=== PATIENT | female | born 1955 | race Caucasian/White ===

== ENCOUNTER → 2016-11-25 | Outpatient (CLI) | payer OTHER ==
[~2016-11-25] MED LIST: ASPI1TAB PO; COZA50TA PO; LOSA25TA8 PO; LOSA50TA20 PO; NAPR500T PO; OMEP20CA3 PO; PLAV75TA PO; TIZA4CAP3 PO; ZANA4TAB PO
--- NOTE | 2016-11-27 06:27 | SLEEPCENT ---
DATE OF PROCEDURE: 11/25/2016 ORDERED BY: Hanna Melissa Nocturnal polysomnography was performed for evaluation of sleep apnea syndrome symptoms in this patient with a history of excessive somnolence, nonrestorative sleep and comorbidity of hypertension. 7 hours and 17 minutes of data were reviewed. There were 391 minutes of sleep identified. Sleep latency was normal at 28 minutes. Rapid eye movement (REM) latency was delayed at 313 minutes. Sleep architecture showed poor progression. There was 1 REM period late in the study. Overall sleep efficiency was 90.6%. The patient's electrocardiogram (EKG) showed a sinus rhythm with an average heart rate of 60 beats per minute. Occasional unifocal ventricular ectopic beats were noted. Electroencephalogram (EEG) showed normal waveforms for awake and sleep. There were 27 respiratory events identified of 10 seconds in duration or greater for an apnea-hypopnea index of 4.1. The events were primarily obstructive, not exclusive to sleep stage nor body posture. Arousals from respiratory events occurred 6.4 times per hour when arousals from snoring were included. Some limb activity was appreciated. Arousals from limb events were few. Oxygen desaturations were seen on occasion into the upper 80s. IMPRESSION: Borderline nocturnal polysomnography with snoring and some respiratory disruption. RECOMMENDATION: The frequency of respiratory events did not meet criteria to establish obstructive sleep apnea syndrome. Nonetheless, the patient's sleep does appear to be impaired by the occurrence of respiratory disruption. Interventions to optimize upper airway tone may be prudent. Should symptoms persist, retesting has been shown more sensitive to identifying mild apneic disease.
== END | disposition home or self-care (01) ==
LOC: M SLEEP 19:45
PROVIDERS: ATTEND Nurse Practitioner Adult Health
DX: R06.83 Snoring (principal)

== ENCOUNTER → 2017-04-20 | Outpatient (REF) | payer OTHER ==
[~2017-04-20] MED LIST changes: -PLAV75TA PO; +PLAV75TA38 PO
[2017-04-20 19:59] LABS: MEAN CORPUSCULAR HEMOGLOBIN 31.8 pg (27.0-33.0); MEAN CORPUSCULAR HGB CONC 33.4 g/dl (32.0-36.5); MEAN CORPUSCULAR VOLUME 95.1 fl (80.0-96.0); RED CELL DISTRIBUTION WIDTH 13.1 % (11.5-14.5); WHITE BLOOD COUNT 7.3 K/mm3 (4.0-10.0)
[2017-04-20 20:10] LABS: ALBUMIN/GLOBULIN RATIO 1.14 (1.00-1.93); ALKALINE PHOSPHATASE 140 U/L (45-117); ALT/SGPT 26 U/L (12-78); ANION GAP 7 MEQ/L (8-16); AST/SGOT 13 U/L (15-37); BILIRUBIN,TOTAL 1.1 MG/DL (0.2-1.0); BLOOD UREA NITROGEN 24 MG/DL (7-18); CALCIUM LEVEL 9.1 MG/DL (8.5-10.1); CARBON DIOXIDE LEVEL 30 MEQ/L (21-32); CHLORIDE LEVEL 103 MEQ/L (98-107); CHOLESTEROL LEVEL 146 MG/DL (<200); CREATININE FOR GFR 0.57 MG/DL (0.55-1.02); FREE T4 1.17 NG/DL (0.76-1.46); GLOMERULAR FILTRATION RATE > 60.0 (>51); GLUCOSE, FASTING 73 MG/DL (70-105); POTASSIUM SERUM 4.6 MEQ/L (3.5-5.1); SODIUM LEVEL 140 MEQ/L (136-145); TOTAL PROTEIN 7.5 GM/DL (6.4-8.2); TRIGLYCERIDES LEVEL 109 MG/DL (<150)
== END ==
LOC: M SFHCADAM 14:24
PROVIDERS: ATTEND Family Medicine
DX: F32.9 Major depressive disorder, single episode, unspecified (principal); I10 Essential (primary) hypertension; E78.2 Mixed hyperlipidemia; E55.9 Vitamin D deficiency, unspecified

== ENCOUNTER → 2017-11-02 | Outpatient (REF) | payer OTHER ==
[~2017-11-02] MED LIST changes: +PLAV1TAB2 PO; -PLAV75TA38 PO
== END ==
LOC: M SFHCWAGY 14:57
PROVIDERS: ATTEND Nurse Practitioner Family
DX: Z12.4 Encounter for screening for malignant neoplasm of cervix (principal)

== ENCOUNTER → 2017-11-02 | Outpatient (CLI) | payer OTHER ==
--- NOTE | 2017-11-02 16:08 | REPMRS ---
Patient History The patient states she had a clinical breast exam in 10/2017. Patient is postmenopausal and is nulliparous. Family history of breast cancer in maternal aunt and colorectal cancer in maternal uncle. Digital Woman Screen Mammo: November 02, 2017 - Exam #: [id number] Bilateral CC and MLO view(s) were taken. Technologist: Jaycee Youngblood, Technologist Prior study comparison: October 17, 2015, digital woman screen mammo performed at [facility] to [facility]. July 02, 2014, digital woman screen mammo performed at [facility] to [facility]. FINDINGS: There are scattered fibroglandular densities. There has been no change in the appearance of the mammogram from the prior studies. There is a mild amount of residual fibroglandular tissue which is fairly symmetric. There is no interval development of dominant mass, architectural distortion, or clustered microcalcification suggestive of malignancy. ASSESSMENT: BI-RADS/ACR category 1 mammogram. Negative. Recommendation Routine screening mammogram in 1 year (for women over age 40). This mammogram was interpreted with the aid of an FDA-approved computer-aided dectection system. Electronically Signed By: Deuce Valentino MD 11/02/17 [id number]
== END ==
LOC: M WHC 14:06
PROVIDERS: ATTEND Nurse Practitioner Family
DX: Z12.31 Encounter for screening mammogram for malignant neoplasm of breast (principal); Z78.0 Asymptomatic menopausal state

== ENCOUNTER → 2018-01-25 | Outpatient (CLI) | payer OTHER | LOC: M WUC 12:17 | DX: S60.212A Contusion of left wrist, initial encounter (principal); X58.XXXA Exposure to other specified factors, initial encounter; Y92.89 Other specified places as the place of occurrence of the external cause | CPT/HCPCS: 73110 ==

== ENCOUNTER → 2018-02-11 | Outpatient (CLI) | payer OTHER ==
[2018-02-11 09:21] LABS: BASO # 0.1 10^3/uL (0.0-0.2); EOS # 0.2 10^3/uL (0.0-0.50); EOS % 2.7 % (0.0-3.0); HEMATOCRIT 39.5 % (36.0-47.0); HEMOGLOBIN 13.2 g/dl (12.0-15.5); IMMATURE GRANULOCYTE % 0.1 % (0-3.0); LYMPH # 2.1 10^3/uL (1.5-4.5); LYMPH % 25.1 % (24.0-44.0); MEAN CORPUSCULAR HEMOGLOBIN 31.3 pg (27.0-33.0); MEAN CORPUSCULAR HGB CONC 33.4 g/dl (32.0-36.5); MEAN CORPUSCULAR VOLUME 93.6 fl (80.0-96.0); MONO # 0.7 10^3/uL (0.0-0.8); MONO % 8.4 % (0.0-5.0); NEUTROPHILS # 5.3 10^3/uL (1.8-7.7); NEUTROPHILS % 62.7 % (36.0-66.0); PLATELET COUNT, AUTOMATED 346 10^3/uL (150-450); RED BLOOD COUNT 4.22 10^6/uL (4.00-5.40); RED CELL DISTRIBUTION WIDTH 13.2 % (11.5-14.5); WHITE BLOOD COUNT 8.4 10^3/uL (4.0-10.0)
[2018-02-11 09:39] LABS: ALBUMIN 3.8 GM/DL (3.2-5.2); ALBUMIN/GLOBULIN RATIO 1.19 (1.00-1.93); ALKALINE PHOSPHATASE 139 U/L (45-117); ALT/SGPT 22 U/L (12-78); ANION GAP 5 MEQ/L (8-16); AST/SGOT 13 U/L (7-37); BILIRUBIN,TOTAL 0.8 MG/DL (0.2-1.0); BLOOD UREA NITROGEN 20 MG/DL (7-18); CALCIUM LEVEL 8.6 MG/DL (8.8-10.2); CARBON DIOXIDE LEVEL 30 MEQ/L (21-32); CHLORIDE LEVEL 107 MEQ/L (98-107); CHOLESTEROL LEVEL 159 MG/DL (<200); CHOLESTEROL RISK RATIO 2.564 (<5); CREATININE FOR GFR 0.56 MG/DL (0.55-1.30); GLOMERULAR FILTRATION RATE > 60.0 (>45); GLUCOSE, FASTING 98 MG/DL (70-100); HDL CHOLESTEROL 62 MG/DL (>40); LDL CHOLESTEROL 67.6 MG/DL (<100); NON-HDL-C 97 MG/DL; POTASSIUM SERUM 4.4 MEQ/L (3.5-5.1); SODIUM LEVEL 142 MEQ/L (136-145); TRIGLYCERIDES LEVEL 147 MG/DL (<150)
== END ==
LOC: M LAB 08:50
DX: Z00.00 Encounter for general adult medical examination without abnormal findings (principal)
CPT/HCPCS: 80053

== ENCOUNTER → 2018-02-11 | Outpatient (CLI) | payer OTHER | LOC: M RAD 12:03 | DX: M76.71 Peroneal tendinitis, right leg (principal) | CPT/HCPCS: 73721 ==

== ENCOUNTER → 2018-05-24 | Outpatient (CLI) | payer OTHER ==
[2018-05-24 11:13] LABS: CHOLESTEROL LEVEL 186 MG/DL (<200); CHOLESTEROL RISK RATIO 3.152 (<5); HDL CHOLESTEROL 59 MG/DL (>40); LDL CHOLESTEROL 104.6 MG/DL (<100); NON-HDL-C 127 MG/DL; TRIGLYCERIDES LEVEL 112 MG/DL (<150)
== END ==
LOC: M LAB 10:12
DX: E78.2 Mixed hyperlipidemia (principal)
CPT/HCPCS: 80061

== ENCOUNTER → 2018-12-20 | Outpatient (CLI) | payer OTHER ==
[~2018-12-20] MED LIST changes: +LOSA25TA14 PO; -LOSA25TA8 PO; -LOSA50TA20 PO; +LOSA50TA88 PO; +NAPR-50 PO; -NAPR500T PO; +TIZA4CAP PO; -TIZA4CAP3 PO
[2018-12-20 11:36] LABS: BASO # 0.1 10^3/uL (0.0-0.2); BASO % 1.4 % (0.0-1.0); EOS # 0.2 10^3/uL (0.0-0.50); EOS % 3.4 % (0.0-3.0); HEMATOCRIT 39.8 % (36.0-47.0); HEMOGLOBIN 13.4 g/dl (12.0-15.5); LYMPH # 2.2 10^3/uL (1.5-4.5); MEAN CORPUSCULAR HEMOGLOBIN 31.3 pg (27.0-33.0); MEAN CORPUSCULAR HGB CONC 33.7 g/dl (32.0-36.5); MONO # 0.6 10^3/uL (0.0-0.8); MONO % 8.9 % (0.0-5.0); NEUTROPHILS # 3.8 10^3/uL (1.8-7.7); PLATELET COUNT, AUTOMATED 310 10^3/uL (150-450); RED BLOOD COUNT 4.28 10^6/uL (4.00-5.40)
[2018-12-20 12:09] LABS: ALBUMIN 3.7 GM/DL (3.2-5.2); ALT/SGPT 23 U/L (12-78); BILIRUBIN,TOTAL 0.6 MG/DL (0.2-1.0); BLOOD UREA NITROGEN 17 MG/DL (7-18); CALCIUM LEVEL 8.3 MG/DL (8.8-10.2); CARBON DIOXIDE LEVEL 31 MEQ/L (21-32); CHLORIDE LEVEL 107 MEQ/L (98-107); CHOLESTEROL LEVEL 176 MG/DL (<200); CHOLESTEROL RISK RATIO 3.142 (<5); CREATININE FOR GFR 0.56 MG/DL (0.55-1.30); GLOMERULAR FILTRATION RATE > 60.0 (>45); GLUCOSE, FASTING 89 MG/DL (70-100); HDL CHOLESTEROL 56 MG/DL (>40); LDL CHOLESTEROL 105 MG/DL (<100); NON-HDL-C 120 MG/DL; POTASSIUM SERUM 4.7 MEQ/L (3.5-5.1); SODIUM LEVEL 143 MEQ/L (136-145); TOTAL 25(OH) VITAMIN D 66.1 NG/ML (30.0-100.0); TOTAL PROTEIN 6.7 GM/DL (6.4-8.2); TRIGLYCERIDES LEVEL 74 MG/DL (<150)
== END ==
LOC: M LAB 10:28
PROVIDERS: ATTEND Family Medicine
DX: E78.2 Mixed hyperlipidemia (principal)

== ENCOUNTER → 2019-01-20 | Outpatient (CLI) | payer OTHER ==
--- NOTE | 2019-01-20 15:27 | REPMRS ---
Patient History The patient states she had a clinical breast exam in 01/31 Family history of breast cancer in maternal aunt, colorectal cancer in maternal uncle. 3D TOMOSYNTHESIS WAS PERFORMED. Digital Woman Screen Mammo: January 20, 2019 - Exam #: [id number] Bilateral CC and MLO view(s) were taken. Technologist: Maya Flores, Technologist Prior study comparison: November 02, 2017, digital woman screen mammo performed at [facility]. October 17, 2015, digital woman screen mammo performed at [facility] to [facility]. FINDINGS: There are scattered fibroglandular densities. There has been no change in the appearance of the mammogram from the prior studies. There is a mild amount of residual fibroglandular tissue which is fairly symmetric. There is no interval development of dominant mass, architectural distortion, or clustered microcalcification suggestive of malignancy. Assessment: BI-RADS/ACR category 1 mammogram. Negative Mammogram. Recommendation Routine screening mammogram in 1 year (for women over age 40). This mammogram was interpreted with the aid of an FDA-approved computer-aided dectection system. Electronically Signed By: Deuce Valentino MD 01/20/19 [id number]
== END ==
LOC: M WHC 13:44
PROVIDERS: ATTEND Nurse Practitioner Family
DX: Z12.31 Encounter for screening mammogram for malignant neoplasm of breast (principal); Z80.3 Family history of malignant neoplasm of breast

== ENCOUNTER → 2019-02-22 | Outpatient (CLI) | payer OTHER ==
[~2019-02-22] MED LIST changes: -ASPI1TAB PO; +ASPI81TA26 PO; -NAPR-50 PO; +NAPR-837 PO
== END ==
LOC: M LAB 12:45
PROVIDERS: ATTEND Family Medicine
DX: Z11.59 Encounter for screening for other viral diseases (principal); I10 Essential (primary) hypertension; N39.3 Stress incontinence (female) (male)

== ENCOUNTER → 2019-03-01 | Outpatient (CLI) | payer OTHER ==
--- NOTE | 2019-03-01 12:57 | REP ---
Low-dose lung screening CT of the chest: The study is performed without IV contrast. The images are presented at lung windowing only. There are no nodules or masses. There are no acute infiltrates or pleural effusions. Impression: Category 1 low-dose lung screening CT. The incidence of malignancy is less than 1%. Depending on risk factors consider annual follow-up low-dose lung screening CT. Electronically Signed by Deuce Galvin MD 03/01/2019 12:48 P
== END ==
LOC: M RAD 09:30
PROVIDERS: ATTEND Family Medicine
DX: Z12.2 Encounter for screening for malignant neoplasm of respiratory organs (principal); F17.210 Nicotine dependence, cigarettes, uncomplicated

== ENCOUNTER 2019-05-11 12:53 | Outpatient (RCR) | payer OTHER | END 2019-05-14 | LOC: M PT 12:53 | PROVIDERS: ATTEND Obstetrics & Gynecology | DX: N39.46 Mixed incontinence (principal); N39.42 Incontinence without sensory awareness ==

== ENCOUNTER 2019-05-26 10:20 | Outpatient (RCR) | payer OTHER ==
[~2019-05-26 10:20] MED LIST changes: -OMEP20CA3 PO; +OMEP20CA4 PO
== END 2019-06-14 ==
LOC: M PT 10:20
PROVIDERS: ATTEND Obstetrics & Gynecology
DX: Z51.89 Encounter for other specified aftercare (principal); N39.46 Mixed incontinence; N39.42 Incontinence without sensory awareness

== ENCOUNTER 2019-10-30 20:44 | Emergency (ER) | payer OTHER ==
[~2019-10-30] VITALS: Ht 160 cm; Wt 91.3 kg
[~2019-10-30 20:44] MED LIST changes: +OMEP-172 PO; -OMEP20CA4 PO
--- NOTE | 2019-10-30 21:21 | REPVR ---
PROCEDURE INFORMATION: Exam: CT Head Without Contrast Exam date and time: 10/30/2019 9:15 PM Age: 64 years old Clinical history: Weakness, facial; Additional info: CVA - nursing interventions must not delay CT TECHNIQUE: Imaging protocol: Computed tomography of the head without contrast. Radiation optimization: All CT scans at this facility use at least one of these dose optimization techniques: automated exposure control; mA and/or kV adjustment per patient size (includes targeted exams where dose is matched to clinical indication); or iterative reconstruction. Other technique: STROKE PROTOCOL was implemented. COMPARISON: CT Head without contrast 03/08/2014 4:52 PM FINDINGS: Brain: There is volume loss. There is white matter lucency consistent with chronic microvascular disease. There is an old right basal ganglia lacunar infarct. There is an old right thalamic lacunar infarct. There is no evidence of acute infarct. There is no hemorrhage or extra-axial collection. Ventricles: Normal. No ventriculomegaly. Bones/joints: Unremarkable. No acute fracture. Sinuses: Visualized sinuses are unremarkable. No fluid levels. Mastoid air cells: Visualized mastoid air cells are well aerated. Soft tissues: Unremarkable. IMPRESSION: 1. There is chronic microvascular disease with old right basal ganglia and thalamic lacunar infarcts. 2. No acute lesion or injury and no change from prior scan. ASSESSMENT: ASPECTS ([facility] Stroke Program Early CT Score) is 10 Electronically signed by: Liam Gary On 10/30/2019 21:21:24 PM
[2019-10-30 21:44] LABS: BASO # 0.1 10^3/uL (0.0-0.2); EOS # 0.3 10^3/uL (0.0-0.5); EOS % 3.6 % (0.0-3.0); HEMATOCRIT 41.1 % (36.0-47.0); HEMOGLOBIN 13.8 g/dl (12.0-15.5); LYMPH # 3.2 10^3/uL (1.5-5.0); LYMPH % 33.5 % (24.0-44.0); MEAN CORPUSCULAR HEMOGLOBIN 30.9 pg (27.0-33.0); MEAN CORPUSCULAR HGB CONC 33.6 g/dl (32.0-36.5); MEAN CORPUSCULAR VOLUME 91.9 fl (80.0-96.0); MONO % 10.1 % (0.0-5.0); NEUTROPHILS # 4.9 10^3/uL (1.5-8.5); NEUTROPHILS % 51.6 % (36.0-66.0); PLATELET COUNT, AUTOMATED 325 10^3/uL (150-450); RED BLOOD COUNT 4.47 10^6/uL (4.00-5.40); WHITE BLOOD COUNT 9.4 10^3/uL (4.0-10.0)
[2019-10-30] MEDS ORDERED: NS 1,000 ML IV ONE (21:45)
[2019-10-30] MEDS ORDERED: METOCLOPRAMIDE INJ 10MG/2ML VIAL (J2765) IV ONE (21:45)
[2019-10-30 22:02] LABS: INR 0.97; PROTHROMBIN TIME 12.6 SECONDS (11.8-14.0)
[2019-10-30 22:03] LABS: PARTIAL THROMBOPLASTIN TIME 28.3 SECONDS (25.0-38.4)
[2019-10-30 22:12] LABS: C REACTIVE PROTEIN QUANTITATIV < 0.30 MG/DL (0.00-0.30); CK-MB VALUE MASS 2.2 NG/ML (<3.6); CPK CREATINE PHOSPHOKINASE 108 U/L (26-192); MB/CK RELATIVE INDEX 2.04 (< OR =4); TROPONIN I < 0.02 NG/ML (< 0.10)
[2019-10-30 22:37] LABS: ERYTHROCYTE SEDIMENTATION RATE 12 mm/hr (0-30)
[2019-10-30] MEDS ORDERED: ISOVUE-370 76% 100ML VIAL (Q9967) As Ordered ONE (22:50)
--- NOTE | 2019-10-30 23:48 | REPVR ---
PROCEDURE INFORMATION: Exam: CT Angiography Head With Contrast Exam date and time: 10/30/2019 10:15 PM Age: 64 years old Clinical history: Pain; Headache; Additional Info: severe headache with neck pain; R/O aneurysm TECHNIQUE: Imaging protocol: Computed tomography angiography of the head with intravenous contrast. 3D rendering: MIP reconstructed images were created and reviewed. Radiation optimization: All CT scans at this facility use at least one of these dose optimization techniques: automated exposure control; mA and/or kV adjustment per patient size (includes targeted exams where dose is matched to clinical indication); or iterative reconstruction. Contrast material: ISO; Contrast volume: 100 ml; Contrast route: AC; COMPARISON: CT Head without contrast 10/30/2019 8:59 PM FINDINGS: Limitations: Examination is limited by motion artifact. Right internal carotid artery: Atherosclerotic calcification of the right carotid siphon. No occlusion or significant stenosis. No aneurysm. Right anterior cerebral artery: Unremarkable. No occlusion or significant stenosis. No aneurysm. Right middle cerebral artery: Unremarkable. No occlusion or significant stenosis. No aneurysm. Right posterior cerebral artery: Unremarkable. No occlusion or significant stenosis. No aneurysm. Right vertebral artery: Unremarkable. No occlusion or significant stenosis. No aneurysm. Left internal carotid artery: Atherosclerotic calcification of the left carotid siphon. No occlusion or significant stenosis. No aneurysm. Left anterior cerebral artery: Unremarkable. No occlusion or significant stenosis. No aneurysm. Left middle cerebral artery: Unremarkable. No occlusion or significant stenosis. No aneurysm. Left posterior cerebral artery: Unremarkable. No occlusion or significant stenosis. No aneurysm. Left vertebral artery: Unremarkable. No occlusion or significant stenosis. No aneurysm. Basilar artery: Unremarkable. No occlusion or significant stenosis. No aneurysm. IMPRESSION: 1. No large vessel arterial occlusion. 2. No aneurysm. Electronically signed by: Chelsey Hardin On 10/30/2019 23:48:16 PM
--- NOTE | 2019-10-30 23:53 | REPVR ---
PROCEDURE INFORMATION: Exam: CT Angiography Neck With Contrast Exam date and time: 10/30/2019 10:15 PM Age: 64 years old Clinical history: Pain; Headache; Additional Info: severe headache with neck pain; R/O aneurysm TECHNIQUE: Imaging protocol: Computed tomography angiography of the neck with intravenous contrast. 3D rendering: MIP reconstructed images were created and reviewed. Radiation optimization: All CT scans at this facility use at least one of these dose optimization techniques: automated exposure control; mA and/or kV adjustment per patient size (includes targeted exams where dose is matched to clinical indication); or iterative reconstruction. Contrast material: ISO; Contrast volume: 100 ml; Contrast route: AC; COMPARISON: US Duplex,carotid (complete) 03/09/2014 12:50 PM FINDINGS: Limitations: Examination is limited by motion artifact. VASCULATURE: Right common carotid artery: Unremarkable. No stenosis. No dissection or occlusion. Right internal carotid artery: Moderate atherosclerotic calcification at the origin of the right internal carotid artery. Tortuous proximal right ICA. Less than 50% focal stenosis of the proximal right ICA because of kinking. Moderate atherosclerotic calcification at the origin of the right internal carotid artery. Partially rim calcified lesion dorsal-medial to the right internal carotid artery measuring 1.4 x 1.4 x 2.7 cm, suspicious for thrombosed aneurysm. There is irregularity of the medial wall of the the right ICA at the partially calcified ICA lesion. Right external carotid artery: Unremarkable. No occlusion or stenosis of the origin. Right vertebral artery: Unremarkable. No stenosis. No dissection or occlusion. Left common carotid artery: Unremarkable. No stenosis. No dissection or occlusion. Left internal carotid artery: Moderate atherosclerotic calcification at the origin of the left internal carotid artery. Tortuous left ICA. Less than 50% focal stenosis in the left ICA because of kinking. No aneurysm. Left external carotid artery: Unremarkable. No occlusion or stenosis of the origin. Left vertebral artery: Unremarkable. No stenosis. No dissection or occlusion. NECK: Thyroid: Multiple small hypodense lesions in the thyroid measuring up to 6 mm. Moderate atherosclerotic calcification at the origin of the left internal carotid artery. Bones/joints: Mild degenerative spine. No acute fracture. Soft tissues: Normal. Lungs: Centrilobular emphysematous lung disease. Dental: Multiple dental fillings with associated beam hardening artifact. IMPRESSION: 1. Less than 50% focal stenosis of the proximal right ICA because of kinking. 2. Partially rim calcified lesion dorsal-medial to the right internal carotid artery, suspicious for thrombosed aneurysm. There is irregularity of the medial wall of the the right ICA at the partially calcified ICA lesion. 3. Less than 50% focal stenosis in the left ICA because of kinking. 4. Multiple small thyroid lesions. No follow-up is necessary. 5. Additional findings as described. COMMENT: 1. Reference per NASCET criteria for degree of stenosis: Mild: less than 50% stenosis. Moderate: 50-69% stenosis. Severe: 70-94% stenosis. Near occlusion: 95-99% stenosis. 2. In patients aged 35 years and older with an incidental thyroid nodule equal to or greater than 1.[address], MRI or extrathyroidal US, further evaluation with dedicated thyroid US is recommended for patients with normal life expectancy and without comorbidities. For smaller nodules without suspicious features, no further evaluation or follow up is recommended. Electronically signed by: Chelsey Hardin On 10/30/2019 23:52:57 PM
[2019-10-31 00:15] VITALS: BP 157/69
--- NOTE | 2019-10-31 08:46 | REP ---
Portable chest x-ray: Single view. History: CVA. Comparison chest x-ray January 13, 2016. Findings: Monitoring electrodes overlie the chest. Lungs are well inflated and clear. Heart is not enlarged. The aorta is calcific and a little tortuous. Impression: No acute disease. Electronically Signed by Jeremias Frank MD 10/31/2019 08:38 A
--- NOTE | 2019-10-31 10:38 | ED PDOC ---
Post-Departure Follow-Up cta neck faxed to [facility] Abhishek Olson MD Oct 31, 2019 10:38
--- NOTE | 2019-10-31 22:04 | ECGEPIP ---
[facility] - ED Test Date: 2019-10-30 Pat Name: SOHAIL HIDALGO Department: Room: - Gender: Female Health Outcomes Liaison: amada : 1955 Requested By: Jeison Velez Order Number: [id number] Reading MD: Stacey Ba Measurements Intervals [place] Rate: 66 P: 64 WA: 157 QRS: 65 QRSD: 89 T: 62 QT: 397 QTc: 417 Interpretive Statements SINUS RHYTHM PROMINENT T WAVES NO PRIOR Electronically Signed on 10-31-2019 22:03:47 EST by Stacey Ba
== END 2019-10-31 00:45 | disposition home or self-care (01) ==
LOC: M ED 20:44
DX: R51 Headache (principal); I72.0 Aneurysm of carotid artery; I10 Essential (primary) hypertension; G43.909 Migraine, unspecified, not intractable, without status migrainosus; K21.9 Gastro-esophageal reflux disease without esophagitis; M45.9 Ankylosing spondylitis of unspecified sites in spine; Z86.73 Personal history of transient ischemic attack (TIA), and cerebral infarction without residual deficits; Z88.8 Allergy status to other drugs, medicaments and biological substances
CPT/HCPCS: 70450; 70496; 70498; 71045; 80047; 82550; 82553; 84484; 85025; 85610; 85652; 85730; 86140; 86850; 86900; 86901; 93005; 93041; 94760; 96361; 96374; 99285; J2765; Q9967

== ENCOUNTER → 2019-12-08 | Outpatient (REF) | payer OTHER ==
[~2019-12-08] MED LIST changes: -OMEP-172 PO; +OMEP1CAP73 PO
[2019-12-08 15:58] LABS: CHLAMYDIA DNA AMPLIFICATION NEGATIVE (NEGATIVE); GC DNA AMPLIFICATION NEGATIVE (NEGATIVE)
== END ==
LOC: M SFHCWAGY 13:50
PROVIDERS: ATTEND Family Medicine
DX: R32 Unspecified urinary incontinence (principal)

== ENCOUNTER → 2020-10-01 | Outpatient (REF) | payer OTHER | LOC: M SFHCWAGY 13:29 | PROVIDERS: ATTEND Nurse Practitioner Family | DX: Z12.4 Encounter for screening for malignant neoplasm of cervix (principal); Z01.419 Encounter for gynecological examination (general) (routine) without abnormal findings ==

== ENCOUNTER → 2020-10-01 | Outpatient (CLI) | payer OTHER ==
--- NOTE | 2020-10-01 16:27 | REPMRS ---
Patient History The patient states she had a clinical breast exam in 2019. Family history of breast cancer in maternal aunt, colorectal cancer in maternal uncle. 3D TOMOSYNTHESIS WAS PERFORMED. The Bobby Muniz lifetime risk for breast cancer is 11.6%. Volpara breast density b. Digital Woman Screen Mammo: October 01, 2020 - Exam #: [id number] Bilateral CC and MLO view(s) were taken. Technologist: Fang Spence, Technologist Prior study comparison: January 20, 2019, bilateral digital woman screen mammo performed at [facility]. November 02, 2017, digital woman screen mammo performed at [facility]. FINDINGS: There are scattered fibroglandular densities. There has been no change in the appearance of the mammogram from the prior studies. There is a mild amount of residual fibroglandular tissue which is fairly symmetric. There is no interval development of dominant mass, architectural distortion, or clustered microcalcification suggestive of malignancy. Assessment: BI-RADS/ACR category 1 mammogram. Negative Mammogram. Recommendation Routine screening mammogram in 1 year (for women over age 40). This mammogram was interpreted with the aid of an FDA-approved computer-aided dectection system. Electronically Signed By: Deuce Valentino MD 10/01/20 [id number]
== END ==
LOC: M WHC 12:54
PROVIDERS: ATTEND Nurse Practitioner Family
DX: Z12.31 Encounter for screening mammogram for malignant neoplasm of breast (principal)

== ENCOUNTER → 2021-01-30 | Outpatient (CLI) | payer OTHER ==
[~2021-01-30] MED LIST changes: +ISOVUE-370 76% 100ML VIAL As Ordered ONE
--- NOTE | 2021-01-31 13:09 | REP ---
INDICATION: NICOTINE DEPENDENCE/ PT HAS ANOTHER RAD ACCOUNT FROM TODAY. COMPARISON: Comparison CT screening study March 01, 2019.. TECHNIQUE: Low-dose screening exam. Helical scanning is performed and 3 mm axial images re-formatted at lung only windows. FINDINGS: Digital preliminary coat tailor radiograph is unremarkable. No new infiltrate is seen. There is some mild linear fibrosis in the lingula. No lung mass is seen. No significant pulmonary nodule is appreciated. IMPRESSION: Lung RADS category 1 findings. Repeat screening exam suggested in 1 year. <Electronically signed by Agustin Frank > 01/31/21 [id number]
== END ==
LOC: M RAD 14:18
PROVIDERS: ATTEND Physician Assistant Medical
DX: Z12.2 Encounter for screening for malignant neoplasm of respiratory organs (principal); F17.210 Nicotine dependence, cigarettes, uncomplicated
CPT/HCPCS: 71271; Q9967

== ENCOUNTER → 2021-01-30 | Outpatient (CLI) | payer OTHER ==
[~2021-01-30] MED LIST changes: -ISOVUE-370 76% 100ML VIAL As Ordered ONE
--- NOTE | 2021-01-30 15:58 | REPVR ---
PROCEDURE INFORMATION: Exam: CT Angiography Neck With Contrast Exam date and time: 01/30/2021 3:22 PM Age: 65 years old Clinical indication: Condition or disease; Other: Cerebral aneursym, non ruptured; Additional info: Cerebral aneursym, non ruptured/ PT has another rad account TECHNIQUE: Imaging protocol: Computed tomography angiography of the neck with intravenous contrast. 3D rendering (Not supervised by radiologist): MIP and/or 3D reconstructed images were created by the technologist. Radiation optimization: All CT scans at this facility use at least one of these dose optimization techniques: automated exposure control; mA and/or kV adjustment per patient size (includes targeted exams where dose is matched to clinical indication); or iterative reconstruction. Contrast material: ISOVUE 370; Contrast volume: 75 ml; Contrast route: INTRAVENOUS (IV); COMPARISON: CT ANGIO NECK 10/30/2019 11:06 PM FINDINGS: Right common carotid artery: No stenosis. No dissection or occlusion. Right internal carotid artery: There is tortuosity of the extracranial right internal carotid artery. There is mild, less than 50%, stenosis secondary to kinking. There is a large aneurysm arising from the posteromedial wall of the extracranial right internal carotid artery. This has a densely calcified rim. It is largely thrombosed. There is minimal contrast within the aneurysm unchanged from the prior scan. There is mild, less than 50%, stenosis of the right internal carotid artery at the site of this aneurysm. Maximal dimensions of this aneurysm on axial images are 16 x 10 mm on axial images with craniocaudad dimension of 2.9 cm. No change from prior scan. Right external carotid artery: No occlusion or stenosis of the origin. Right vertebral artery: No stenosis. No dissection or occlusion. Left common carotid artery: No stenosis. No dissection or occlusion. Left internal carotid artery: The extracranial left internal carotid artery is tortuous. There is mild, less than 50%, mid internal carotid artery stenosis secondary to kinking. No change from prior scan. Left external carotid artery: No occlusion or stenosis of the origin. Left vertebral artery: No stenosis. No dissection or occlusion. Bones/joints: No acute fracture. Soft tissues: Normal. No significant soft tissue swelling. IMPRESSION: Large right internal carotid artery aneurysm. This has a densely calcified rim and is almost completely thrombosed. There is mild, less than 50%, stenosis of the adjacent right internal carotid artery. There is no significant change from prior scan REFERENCES: NASCET CRITERIA. The degree of internal carotid artery stenosis is based on NASCET criteria. Normal is no stenosis. Mild is less than 50% stenosis. Moderate is 50-69% stenosis. Severe is 70% to 99% stenosis. Total occlusion is no detectable patent lumen. Electronically signed by: Liam Gary On 01/30/2021 15:58:50 PM
--- NOTE | 2021-01-31 05:45 | REP ---
INDICATION: CEREBRAL ANEURSYM, NON RUPTURED COMPARISON: 03/09/2014 TECHNIQUE: Valentino scale and color Doppler evaluation using linear high frequency transducer Findings: FINDINGS: Two-dimensional valentino scale and color images demonstrate moderate amounts of mixed partially calcified atheromatous plaquing through the common carotid arteries extending into the bilateral internal carotid arteries without evidence for focal stenosis or occlusion. Color Doppler interrogation demonstrates normal arterial wave patterns and velocities with moderate spectral broadening. Normal flow direction is appreciated in the bilateral vertebral arteries. ICA peak systolic velocity: Right 74.7 cm/s; Left 73.2 cm/s ICA diastolic velocity: Right 30.0 cm/s; Left 27.1 cm/s ECA peak systolic velocity: Right 105.1 cm/s; Left 89.2 cm/s CCA peak systolic velocity: Right 83.3 cm/s; Left 88.8 cm/s ICA/CCA ratio: Right 0.90 cm/s; Left 0.82 cm/s IMPRESSION: No hemodynamically significant areas of narrowing or stenosis appreciated. Based on set standards narrowing falls within the less than 50% range. <Electronically signed by Rashad Rodrigez > 01/31/21 0542
== END ==
LOC: M RAD 14:15
PROVIDERS: ATTEND Surgery
DX: I67.1 Cerebral aneurysm, nonruptured (principal)

== ENCOUNTER → 2021-05-08 | Outpatient (CLI) | payer OTHER ==
--- NOTE | 2021-05-13 13:21 | SLEEPCENT ---
NOCTURNAL POLYSOMNOGRAPHY DATE: 05/08/2021 ORDERED BY: Yvonne Ashley. Nocturnal polysomnography was performed for evaluation of sleep physiology in this patient with a history of borderline sleep testing in the past. 7 hours and 48 minutes of data were reviewed. There were 426.5 minutes of sleep identified. Sleep latency was mildly prolonged at 14 minutes. REM sleep was delayed at 280 minutes. Sleep architecture showed poor progression. Some fragmentation was noted. There were 2 REM cycles. Overall sleep efficiency 92.9%. The electrocardiogram showed a sinus rhythm with an average heart rate of 72 beats per minute. EEG showed normal waveforms for awake and sleep. There were 101 respiratory events identified of 10 seconds in duration or greater for an apnea-hypopnea index of 14.2. The events were obstructive, not exclusive to sleep stage, more frequent but not exclusive to the supine posture. Arousals from respiratory events occurred 3 times per hour, and oxygen desaturations were seen into the 70s. Minor limb activity was appreciated. Limb movement arousal index was 3.2. IMPRESSION: Obstructive sleep apnea syndrome (G47.33). Apnea-hypopnea index 14.2. RECOMMENDATION: The patient should be encouraged to return to [facility]. In the interim, alcohol and sedative avoidance should be practiced and caution exercised during the operation of motor vehicles. cc: Elham Foy PA-C
== END ==
LOC: M SLEEP 20:00
PROVIDERS: ATTEND Nurse Practitioner Adult Health
DX: G47.30 Sleep apnea, unspecified (principal)

== ENCOUNTER → 2021-05-31 | Outpatient (CLI) | payer OTHER ==
--- NOTE | 2021-06-01 08:28 | REP ---
INDICATION: RT SHOULDER CALCIFIC TENDINITIS IMPING SYND RCT. COMPARISON: X-ray 05/19/2021. TECHNIQUE: Sagittal fat-suppressed T2, axial fat-suppressed T2 and gradient echo sequences with coronal T1 and fat-suppressed T2. FINDINGS: The AC joint shows some hypertrophic changes greater superiorly than inferiorly. There is some subacromial bursal fluid. A peripheral acromial spur is noted which would contribute to some impingement and supraspinatus tendinopathy. There is subdeltoid bursal fluid and calcific deposits in the bursal recess and over the insertion of the supraspinatus tendon on the greater tuberosity humeral head consistent with calcific bursitis/tendinitis. Only trace fluid in the shoulder joint. There is thickening of the axillary recess bursal margins inferior to the glenoid. There is a some edema in the greater tuberosity of the humeral head subcortical region and few subcortical cysts noted likely related to posterior impingement from peripheral acromial spur. The supraspinatus tendon does show evidence for tendinopathy but I do not see evidence of a full-thickness tear or retraction of the tendon. There is thickening and heterogeneous signal of the tendon as it approaches the greater tuberosity. There is some atrophy of the supraspinatus muscle. The coracoclavicular and coracohumeral ligaments intact. I do not see evidence of an acute tear of the superior labrum with slight rounding of portions of it suggesting some labral degeneration. There is thickening of the subscapularis tendon and intrasubstance increased signal suggesting tendinopathy. There is no atrophy of the muscle. The infraspinatus and teres minor tendons show minor tendinopathy without a tear. There is some edema in the infraspinatus muscle. The biceps tendon is seated in its groove. Its intra-articular course is grossly intact and the biceps labral junction intact. IMPRESSION: 1. Supraspinatus calcific tendinopathy and subdeltoid calcific bursitis over the greater tuberosity humeral head. Subacromial and subdeltoid bursal fluid noted with the only trace fluid in the glenohumeral joint. 2. There is no full-thickness tear or retraction of the supraspinatus tendon. Peripheral acromial spur and AC joint spurring contributing to tendinopathy and impingement. 3. Subscapularis tendinopathy without muscle atrophy or tendon tear. 4. Mild tendinopathy infraspinatus and teres minor with some muscular edema on the T2 sequence in the infraspinatus. 5. Some labral degeneration without definite labral tear. Biceps tendon and biceps labral complex grossly intact. 6. Thickening of the bursal margins of the axillary recess with trace fluid in that joint. These findings are suggestive of possible adhesive capsulitis. 7. Coracoclavicular and coracohumeral ligaments intact. <Electronically signed by Earl Welch > 06/01/21 [id number]
== END ==
LOC: M RAD 13:03
PROVIDERS: ATTEND Orthopaedic Surgery Sports Medicine
DX: M75.31 Calcific tendinitis of right shoulder (principal); M75.41 Impingement syndrome of right shoulder

== ENCOUNTER → 2021-06-06 | Outpatient (CLI) | payer OTHER ==
--- NOTE | 2021-06-11 15:17 | SLEEPCENT ---
DATE: 06/06/2021 ORDERED BY: Yvonne Ashley NP Nocturnal polysomnography was performed for the titration of pressure therapy in this patient with obstructive sleep apnea syndrome, apnea-hypopnea index 14.2. For testing, a [employer]Med Airfit F20 full face mask of medium size was used, 4 cm of water pressure were applied to the circuit and the lights were extinguished. Eight hours and 7 minutes of data were reviewed. There were 432.5 minutes of sleep identified. Sleep latency was mildly prolonged at 20 minutes. REM latency was more so prolonged at 329.5 minutes. Sleep architecture improved late in the study. There was one REM cycle noted. Overall sleep efficiency was 90.3%. The electrocardiogram showed a sinus rhythm with an average heart rate of 62 beats per minute. Rate ranged 50-70. EEG showed reasonably normal waveforms for wake and sleep. Best sleep was seen on a CPAP pressure of 8. There was some limb activity noted despite suppression of respiratory events. Limb movement arousal index on this occasion was 6. IMPRESSION: Obstructive sleep apnea syndrome (G47.33). RECOMMENDATION: Nightly use of pressure therapy 8 cm of water. cc: VANNESA Briscoe
== END ==
LOC: M SLEEP 20:00
PROVIDERS: ATTEND Nurse Practitioner Adult Health
DX: G47.33 Obstructive sleep apnea (adult) (pediatric) (principal)

== ENCOUNTER → 2022-02-10 | Outpatient (CLI) | payer OTHER ==
[~2022-02-10] MED LIST changes: +LOSA25TA13 PO; -LOSA25TA14 PO; +LOSA50TA28 PO; -LOSA50TA88 PO
== END ==
LOC: M RAD 14:02
PROVIDERS: ATTEND Family Medicine
DX: Z87.891 Personal history of nicotine dependence (principal)

== ENCOUNTER → 2022-02-14 | Outpatient (CLI) | payer OTHER ==
[2022-02-14 15:05] LABS: BASO # 0.1 10^3/uL (0.0-0.2); BASO % 1.2 % (0.0-1.0); EOS # 0.3 10^3/uL (0.0-0.5); EOS % 3.3 % (0.0-3.0); HEMATOCRIT 43.5 % (36.0-47.0); HEMOGLOBIN 14.6 g/dl (12.0-15.5); LYMPH # 2.4 10^3/uL (1.5-5.0); LYMPH % 31.7 % (24.0-44.0); MEAN CORPUSCULAR HEMOGLOBIN 31.5 pg (27.0-33.0); MEAN CORPUSCULAR HGB CONC 33.6 g/dl (32.0-36.5); MONO # 0.6 10^3/uL (0.0-0.8); MONO % 8.4 % (2.0-8.0); NEUTROPHILS # 4.2 10^3/uL (1.5-8.5); NEUTROPHILS % 55.3 % (36.0-66.0); PLATELET COUNT, AUTOMATED 323 10^3/uL (150-450); RED BLOOD COUNT 4.63 10^6/uL (4.00-5.40); WHITE BLOOD COUNT 7.7 10^3/uL (4.0-10.0)
[2022-02-14 15:21] LABS: ALBUMIN 3.9 GM/DL (3.2-5.2); ALT/SGPT 40 U/L (12-78); BILIRUBIN,TOTAL 0.9 MG/DL (0.2-1.0); BLOOD UREA NITROGEN 14 MG/DL (7-18); CALCIUM LEVEL 8.5 MG/DL (8.8-10.2); CARBON DIOXIDE LEVEL 28 MEQ/L (21-32); CHLORIDE LEVEL 107 MEQ/L (98-107); CHOLESTEROL LEVEL 191 MG/DL (<200); CREATININE FOR GFR 0.65 MG/DL (0.55-1.30); GLOMERULAR FILTRATION RATE > 60.0 (>45); GLUCOSE, FASTING 88 MG/DL (70-100); HDL CHOLESTEROL 56 MG/DL (>40); LDL CHOLESTEROL 110 MG/DL (<100); NON-HDL-C 135 MG/DL; POTASSIUM SERUM 4.2 MEQ/L (3.5-5.1); SODIUM LEVEL 141 MEQ/L (136-145); TOTAL PROTEIN 7.2 GM/DL (6.4-8.2); TRIGLYCERIDES LEVEL 123 MG/DL (<150)
== END ==
LOC: M LAB 14:23
PROVIDERS: ATTEND Family Medicine
DX: I10 Essential (primary) hypertension (principal)

== ENCOUNTER → 2022-03-05 | Outpatient (CLI) | payer OTHER | LOC: M RAD 13:19 | PROVIDERS: ATTEND Surgery | DX: I72.0 Aneurysm of carotid artery (principal) ==

== ENCOUNTER 2022-03-13 14:27 | Emergency (ER) | payer OTHER ==
[~2022-03-13] VITALS: Ht 152.4 cm; Wt 97.3 kg
[2022-03-13] MEDS ORDERED: ERGO500029 (14:41)
[2022-03-13] MEDS ORDERED: OMEP40CA5 (14:41)
[2022-03-13] MEDS ORDERED: LOSA25TA13 (14:41)
[2022-03-13] MEDS ORDERED: GABA-282 (14:41)
[2022-03-13] MEDS ORDERED: LEXA1TAB (14:41)
[2022-03-13 19:46] VITALS: BP 168/74
== END 2022-03-13 19:47 | disposition home or self-care (01) ==
LOC: M ED 14:27
DX: S60.512A Abrasion of left hand, initial encounter (principal); S00.03XA Contusion of scalp, initial encounter; S93.601A Unspecified sprain of right foot, initial encounter; W01.0XXA Fall on same level from slipping, tripping and stumbling without subsequent striking against object, initial encounter; Y92.480 Sidewalk as the place of occurrence of the external cause; Y93.9 Activity, unspecified; Y99.9 Unspecified external cause status; I10 Essential (primary) hypertension; K58.8 Other irritable bowel syndrome; K21.9 Gastro-esophageal reflux disease without esophagitis; M54.9 Dorsalgia, unspecified; Z88.8 Allergy status to other drugs, medicaments and biological substances; Z79.899 Other long term (current) drug therapy

== ENCOUNTER → 2022-04-24 | Outpatient (CLI) | payer OTHER ==
[~2022-04-24] MED LIST changes: +ERGO500029; +GABA-282; +ISOVUE-370 76% 100ML VIAL As Ordered ONE; +LEXA1TAB; +LOSA25TA13; +OMEP40CA5
== END ==
LOC: M RAD 04-17 17:11
PROVIDERS: ATTEND Surgery
DX: I72.0 Aneurysm of carotid artery (principal)
CPT/HCPCS: 70498; Q9967

== ENCOUNTER → 2022-04-27 | Outpatient (CLI) | payer OTHER ==
[~2022-04-27] MED LIST changes: -ISOVUE-370 76% 100ML VIAL As Ordered ONE
== END ==
LOC: M WHC 13:20
PROVIDERS: ATTEND Nurse Practitioner Family
DX: Z12.31 Encounter for screening mammogram for malignant neoplasm of breast (principal)

== ENCOUNTER → 2022-09-17 | Outpatient (CLI) | payer MEDICARE, OTHER ==
[~2022-09-17] MED LIST changes: +CLOP75TA99 PO; -PLAV1TAB2 PO
== END ==
LOC: M WUC 15:07
PROVIDERS: ATTEND Physician Assistant
DX: R05.1 Acute cough (principal)

== ENCOUNTER → 2023-02-04 | Outpatient (CLI) | payer MEDICARE, OTHER ==
[2023-02-04 13:22] LABS: BASO # 0.1 10^3/uL (0.0-0.2); BASO % 1.1 % (0.0-1.0); EOS # 0.3 10^3/uL (0.0-0.5); EOS % 4.8 % (0.0-3.0); HEMATOCRIT 42.1 % (36.0-47.0); LYMPH # 2.4 10^3/uL (1.5-5.0); LYMPH % 37.8 % (24.0-44.0); MEAN CORPUSCULAR HEMOGLOBIN 31.2 pg (27.0-33.0); MEAN CORPUSCULAR HGB CONC 33.3 g/dl (32.0-36.5); MEAN CORPUSCULAR VOLUME 93.8 fl (80.0-96.0); MONO # 0.6 10^3/uL (0.0-0.8); MONO % 9.1 % (2.0-8.0); PLATELET COUNT, AUTOMATED 288 10^3/uL (150-450); RED BLOOD COUNT 4.49 10^6/uL (4.00-5.40); WHITE BLOOD COUNT 6.5 10^3/uL (4.0-10.0)
[2023-02-04 13:57] LABS: ALBUMIN 3.7 G/DL (3.2-5.2); ALKALINE PHOSPHATASE 117 U/L (46-116); ALT/SGPT 50 U/L (7.0-40); AST/SGOT 25 U/L (<34); BILIRUBIN,TOTAL 0.8 MG/DL (0.3-1.2); BLOOD UREA NITROGEN 16 MG/DL (9-23); CALCIUM LEVEL 9.1 MG/DL (8.3-10.6); CARBON DIOXIDE LEVEL 32 MMOL/L (20-31); CHLORIDE LEVEL 102 MMOL/L (98-107); CHOLESTEROL LEVEL 160 MG/DL (<200); CHOLESTEROL RISK RATIO 3.53 (<5); CREATININE FOR GFR 0.56 MG/DL (0.55-1.30); GLOMERULAR FILTRATION RATE > 60.0 (>45); GLUCOSE, FASTING 97 MG/DL (74-106); HDL CHOLESTEROL 45.2 MG/DL (>40); LDL CHOLESTEROL 92.2 MG/DL (<100); NON-HDL-C 114.8 MG/DL; POTASSIUM SERUM 4.8 MMOL/L (3.5-5.1); SODIUM LEVEL 138 MMOL/L (136-145); TOTAL PROTEIN 6.6 G/DL (5.7-8.2); TRIGLYCERIDES LEVEL 113 MG/DL (<150)
== END ==
LOC: M LAB 12:28
PROVIDERS: ATTEND Family Medicine
DX: I10 Essential (primary) hypertension (principal)

== ENCOUNTER → 2023-02-16 | Outpatient (CLI) | payer MEDICARE, OTHER | LOC: M RAD 09:23 | PROVIDERS: ATTEND Family Medicine | DX: Z87.891 Personal history of nicotine dependence (principal) ==

== ENCOUNTER → 2023-05-21 | Outpatient (CLI) | payer MEDICARE, OTHER ==
[~2023-05-21] MED LIST changes: -COZA50TA PO; +LOSA-528 PO
== END ==
LOC: M RAD 16:29
PROVIDERS: ATTEND Surgery
DX: I67.1 Cerebral aneurysm, nonruptured (principal)

== ENCOUNTER → 2023-09-20 | Outpatient (CLI) | payer MEDICARE, OTHER | LOC: M WHC 13:33 | PROVIDERS: ATTEND Family Medicine | DX: Z12.31 Encounter for screening mammogram for malignant neoplasm of breast (principal); M81.0 Age-related osteoporosis without current pathological fracture ==

== ENCOUNTER → 2023-09-24 | Outpatient (CLI) | payer MEDICARE, OTHER ==
[2023-09-24 11:11] LABS: ALBUMIN 3.7 G/DL (3.2-5.2); BLOOD UREA NITROGEN 15 MG/DL (9-23); CALCIUM LEVEL 8.7 MG/DL (8.3-10.6); CARBON DIOXIDE LEVEL 32 MMOL/L (20-31); CHLORIDE LEVEL 103 MMOL/L (98-107); CREATININE FOR GFR 0.56 MG/DL (0.55-1.30); GLOMERULAR FILTRATION RATE > 60.0 (>45); GLUCOSE, FASTING 96 MG/DL (74-106); PHOSPHORUS LEVEL 4.5 MG/DL (2.4-5.1); POTASSIUM SERUM 4.6 MMOL/L (3.5-5.1); SODIUM LEVEL 141 MMOL/L (136-145)
== END ==
LOC: M LAB 09:32
PROVIDERS: ATTEND Nurse Practitioner Family
DX: B02.9 Zoster without complications (principal)

== ENCOUNTER → 2023-09-24 | Outpatient (CLI) | payer MEDICARE, OTHER ==
[2023-09-24 11:13] LABS: ALBUMIN 3.6 G/DL (3.2-5.2); ALKALINE PHOSPHATASE 123 U/L (46-116); ALT/SGPT 43 U/L (7.0-40); AST/SGOT 25 U/L (<34); BILIRUBIN,TOTAL 0.9 MG/DL (0.3-1.2); BLOOD UREA NITROGEN 14 MG/DL (9-23); CARBON DIOXIDE LEVEL 32 MMOL/L (20-31); CHLORIDE LEVEL 103 MMOL/L (98-107); CHOLESTEROL LEVEL 185 MG/DL (<200); CHOLESTEROL RISK RATIO 3.81 (<5); CREATININE FOR GFR 0.56 MG/DL (0.55-1.30); GLOMERULAR FILTRATION RATE > 60.0 (>45); GLUCOSE, FASTING 97 MG/DL (74-106); HDL CHOLESTEROL 48.5 MG/DL (>40); LDL CHOLESTEROL 110.1 MG/DL (<100); NON-HDL-C 136.5 MG/DL; POTASSIUM SERUM 4.6 MMOL/L (3.5-5.1); SODIUM LEVEL 141 MMOL/L (136-145); TOTAL PROTEIN 7.1 G/DL (5.7-8.2); TRIGLYCERIDES LEVEL 132 MG/DL (<150)
[2023-09-24 11:15] LABS: TOTAL 25(OH) VITAMIN D 77.4 NG/ML (20.0-100.0)
== END ==
LOC: M LAB 09:35
PROVIDERS: ATTEND Family Medicine
DX: E66.9 Obesity, unspecified (principal); E78.2 Mixed hyperlipidemia; I10 Essential (primary) hypertension; E55.9 Vitamin D deficiency, unspecified; B02.9 Zoster without complications; Z79.899 Other long term (current) drug therapy

== ENCOUNTER → 2024-04-27 | Outpatient (CLI) | payer MEDICARE, OTHER ==
[2024-04-27 15:22] LABS: FOLATE > 24.0 NG/ML (>5.4); THYROID STIMULATING HORMONE 0.686 uIU/ML (0.55-4.78); VITAMIN B12 LEVEL 499 PG/ML (211-911)
== END ==
LOC: M LAB 13:44
PROVIDERS: ATTEND Psychiatry & Neurology Neurology
DX: E53.8 Deficiency of other specified B group vitamins (principal); E07.9 Disorder of thyroid, unspecified

== ENCOUNTER → 2024-05-12 | Outpatient (CLI) | payer MEDICARE, OTHER | LOC: M RAD 11:27 | PROVIDERS: ATTEND Surgery | DX: I72.0 Aneurysm of carotid artery (principal) ==

== ENCOUNTER → 2024-08-23 | Outpatient (CLI) | payer MEDICARE, OTHER ==
[~2024-08-23] MED LIST changes: +GABA-1172; -GABA-282
[2024-08-23 13:47] LABS: BASO # 0.1 10^3/uL (0.0-0.2); BASO % 1.1 % (0.0-1.0); EOS # 0.3 10^3/uL (0.0-0.5); EOS % 3.3 % (0.0-3.0); HEMATOCRIT 39.6 % (36.0-47.0); HEMOGLOBIN 13.1 g/dl (12.0-15.5); LYMPH # 2.8 10^3/uL (1.5-5.0); LYMPH % 34.9 % (24.0-44.0); MEAN CORPUSCULAR HEMOGLOBIN 30.9 pg (27.0-33.0); MEAN CORPUSCULAR HGB CONC 33.1 g/dl (32.0-36.5); MEAN CORPUSCULAR VOLUME 93.4 fl (80.0-96.0); MONO # 0.8 10^3/uL (0.0-0.8); MONO % 10.2 % (2.0-8.0); NEUTROPHILS # 4.1 10^3/uL (1.5-8.5); NEUTROPHILS % 50.3 % (36.0-66.0); PLATELET COUNT, AUTOMATED 376 10^3/uL (150-450); RED BLOOD COUNT 4.24 10^6/uL (4.00-5.40); WHITE BLOOD COUNT 8.1 10^3/uL (4.0-10.0)
[2024-08-23 14:07] LABS: ALBUMIN 3.3 G/DL (3.2-5.2); ALKALINE PHOSPHATASE 109 U/L (46-116); ALT/SGPT 27 U/L (7.0-40); AST/SGOT 13 U/L (<34); BILIRUBIN,TOTAL 0.6 MG/DL (0.3-1.2); BLOOD UREA NITROGEN 11 MG/DL (9-23); CALCIUM LEVEL 9.4 MG/DL (8.3-10.6); CARBON DIOXIDE LEVEL 31 MMOL/L (20-31); CHLORIDE LEVEL 106 MMOL/L (98-107); CREATININE FOR GFR 0.56 MG/DL (0.55-1.30); GLOMERULAR FILTRATION RATE > 60.0 (>45); GLUCOSE, FASTING 83 MG/DL (74-106); POTASSIUM SERUM 4.7 MMOL/L (3.5-5.1); SODIUM LEVEL 139 MMOL/L (136-145); TOTAL PROTEIN 6.7 G/DL (5.7-8.2)
[2024-08-23 14:34] LABS: HIV 1&2 SCREEN NEGATIVE (NEGATIVE)
== END ==
LOC: M LAB 12:56
PROVIDERS: ATTEND Nurse Practitioner Family
DX: B00.89 Other herpesviral infection (principal)

== ENCOUNTER → 2024-08-24 | Outpatient (CLI) | payer MEDICARE, OTHER ==
[2024-08-24 15:27] LABS: CHOLESTEROL RISK RATIO 4.33 (<5); HDL CHOLESTEROL 41.5 MG/DL (>40); HEMOGLOBIN A1c 5.1 % (4.0-6.0); LDL CHOLESTEROL 107.1 MG/DL (<100); NON-HDL-C 138.5 MG/DL
== END ==
LOC: M LAB 13:54
PROVIDERS: ATTEND Family Medicine
DX: E78.2 Mixed hyperlipidemia (principal)

== ENCOUNTER → 2024-09-05 | Outpatient (CLI) | payer MEDICARE, OTHER | LOC: M WHC 15:56 | PROVIDERS: ATTEND Family Medicine | DX: Z12.31 Encounter for screening mammogram for malignant neoplasm of breast (principal); F17.211 Nicotine dependence, cigarettes, in remission; Z53.9 Procedure and treatment not carried out, unspecified reason ==

== ENCOUNTER 2024-09-19 12:37 | Outpatient (RCR) | payer MEDICARE, OTHER | END 2024-10-14 | LOC: M PT 12:37 | PROVIDERS: ATTEND Family Medicine | DX: M70.61 Trochanteric bursitis, right hip (principal) ==

== ENCOUNTER → 2024-10-10 | Outpatient (REF) | payer MEDICARE, OTHER | LOC: M SFHCPLAZ 17:15 | PROVIDERS: ATTEND Physician Assistant Medical | DX: R05.3 Chronic cough (principal) ==

== ENCOUNTER → 2024-11-03 | Outpatient (CLI) | payer MEDICARE, OTHER | LOC: M RAD 12:33 | PROVIDERS: ATTEND Family Medicine | DX: Z12.2 Encounter for screening for malignant neoplasm of respiratory organs (principal); F17.211 Nicotine dependence, cigarettes, in remission ==

== ENCOUNTER → 2024-11-06 | Outpatient (CLI) | payer MEDICARE, OTHER | LOC: M WHC 10:05 | PROVIDERS: ATTEND Family Medicine | DX: Z12.31 Encounter for screening mammogram for malignant neoplasm of breast (principal); R92.323 Mammographic fibroglandular density, bilateral breasts ==

== ENCOUNTER 2025-04-13 21:42 | Emergency (ER) | payer MEDICARE, OTHER ==
[~2025-04-13] VITALS: Ht 160 cm; Wt 96.1 kg
[2025-04-14] MEDS: LIDOCAINE 1% MDV 20 ML VIAL SC ONE (00:31)
[2025-04-14] MEDS ORDERED: AMOX875T2 PO (01:13)
[2025-04-14] MEDS: AUGMENTIN 875 MG TAB PO ONE (01:38)
[2025-04-14 01:40] VITALS: BP 150/92; TEMP 96.9; O2SAT 96
== END 2025-04-14 01:45 | disposition home or self-care (01) ==
LOC: M ED 21:42
DX: S61.213A Laceration without foreign body of left middle finger without damage to nail, initial encounter (principal); Y92.9 Unspecified place or not applicable; Y93.9 Activity, unspecified; Y99.9 Unspecified external cause status; W55.03XA Scratched by cat, initial encounter; I10 Essential (primary) hypertension; Z88.8 Allergy status to other drugs, medicaments and biological substances; Z79.2 Long term (current) use of antibiotics; Z79.899 Other long term (current) drug therapy

== ENCOUNTER → 2025-09-07 | Outpatient (CLI) | payer MEDICARE, OTHER ==
[~2025-09-07] MED LIST changes: +AMOX875T2 PO
[2025-09-07 15:17] LABS: ESTIMATED AVERAGE GLUCOSE 100.0 MG/DL (60-110)
[2025-09-07 15:37] LABS: ALT/SGPT 21 U/L (7.0-40); AST/SGOT 17 U/L (<34); CALCIUM LEVEL 8.7 MG/DL (8.3-10.6); CARBON DIOXIDE LEVEL 30 MMOL/L (20-31); CHLORIDE LEVEL 103 MMOL/L (98-107); CHOLESTEROL LEVEL 134 MG/DL (<200); CHOLESTEROL RISK RATIO 2.70 (<5); CREATININE FOR GFR 0.59 MG/DL (0.55-1.30); GLOMERULAR FILTRATION RATE > 90.0 (>45); LDL CHOLESTEROL 59.9 MG/DL (<100); NON-HDL-C 84.5 MG/DL; POTASSIUM SERUM 4.5 MMOL/L (3.5-5.1); SODIUM LEVEL 141 MMOL/L (136-145); TRIGLYCERIDES LEVEL 123 MG/DL (<150)
[2025-09-07 15:39] LABS: TOTAL 25(OH) VITAMIN D 31.6 NG/ML (20.0-100.0)
== END ==
LOC: M LAB 14:36
PROVIDERS: ATTEND Family Medicine
DX: E55.9 Vitamin D deficiency, unspecified (principal); I10 Essential (primary) hypertension; E78.2 Mixed hyperlipidemia; E66.9 Obesity, unspecified; Z79.899 Other long term (current) drug therapy

== ENCOUNTER → 2025-09-14 | Outpatient (CLI) | payer MEDICARE, OTHER | LOC: M WHC 14:07 | PROVIDERS: ATTEND Family Medicine | DX: Z53.9 Procedure and treatment not carried out, unspecified reason (principal) ==

== ENCOUNTER → 2025-11-06 | Outpatient (REF) | payer MEDICARE, OTHER | LOC: M SFHCWAGY 17:19 | PROVIDERS: ATTEND Physician Assistant | DX: N89.8 Other specified noninflammatory disorders of vagina (principal) ==

== ENCOUNTER 2025-11-08 16:22 | Emergency (ER) | payer MEDICARE, OTHER ==
[~2025-11-08] VITALS: Ht 160 cm; Wt 90.1 kg
[2025-11-08] MEDS: TETANUS/DIPHTH/ACEL. PERTUSSIS 0.5 ML SYR IM.IMMUN ONE (17:00)
[2025-11-08 17:07] VITALS: TEMP 97.1; O2SAT 98
[2025-11-08 17:11] VITALS: BP 160/86
== END 2025-11-08 17:14 | disposition home or self-care (01) ==
LOC: M ED 16:22
DX: S61.011A Laceration without foreign body of right thumb without damage to nail, initial encounter (principal); Y92.019 Unspecified place in single-family (private) house as the place of occurrence of the external cause; Y93.9 Activity, unspecified; Y99.9 Unspecified external cause status; W26.0XXA Contact with knife, initial encounter; Z79.2 Long term (current) use of antibiotics; Z79.899 Other long term (current) drug therapy; Z23 Encounter for immunization

== ENCOUNTER → 2025-11-12 | Outpatient (CLI) | payer MEDICARE, OTHER | LOC: M WHC 10:55 | PROVIDERS: ATTEND Family Medicine | DX: Z12.31 Encounter for screening mammogram for malignant neoplasm of breast (principal); M85.80 Other specified disorders of bone density and structure, unspecified site ==

== ENCOUNTER → 2025-11-12 | Outpatient (CLI) | payer MEDICARE, OTHER | LOC: M RAD 14:25 | PROVIDERS: ATTEND Family Medicine | DX: Z12.2 Encounter for screening for malignant neoplasm of respiratory organs (principal); F17.211 Nicotine dependence, cigarettes, in remission; M48.50XA Collapsed vertebra, not elsewhere classified, site unspecified, initial encounter for fracture; Z12.31 Encounter for screening mammogram for malignant neoplasm of breast; M85.89 Other specified disorders of bone density and structure, multiple sites; R92.323 Mammographic fibroglandular density, bilateral breasts ==